=== PATIENT | female | born 1935 | race Caucasian/White ===

== ENCOUNTER 2018-03-11 01:05 | Emergency (ER) | payer MEDICARE, OTHER ==
[~2018-03-11] VITALS: Ht 165.1 cm; Wt 82.7 kg
[2018-03-11 01:06] VITALS: BP 180/73
--- NOTE | 2018-03-11 01:15 | NUR ---
Provider to bedside for pt eval complete.
[2018-03-11] MEDS ORDERED: DIPHENHYDRAMINE 25 MG CAPSULE ONE (01:26)
[2018-03-11] MEDS ORDERED: DEXAMETHASONE 4 MG TABLET ONE (01:26)
[2018-03-11] MEDS ORDERED: DIPHENHYDRAMINE 25 MG CAPSULE PO ONE (01:30)
[2018-03-11] MEDS ORDERED: DEXAMETHASONE 4 MG TABLET PO ONE (01:30)
--- NOTE | 2018-03-11 01:45 | NUR ---
Pt recieved meds per orders, see emar. pt states she was just sitting with her when her hands started to itch, pt noted edema and redness to R hand, then it started to spread to L hand. Redness, edema, noted worse to R hand then L. Pt itching hands. Pt denies having anything new in her routine other than spiriva yesterday AM for the first time. Pt states she didn't notice her hands until last evening. Pt denies SOB or difficulty breathing. Pt breathing E/U, pt does not appear to have dyspnea. Pt in bed with SO at bedside, pt a/ox4. no distress noted. call light in reach.
--- NOTE | 2018-03-11 02:16 | NUR ---
Provider to bedside for pt update complete.
--- NOTE | 2018-03-11 02:40 | NUR ---
Patient/Caregiver given discharge instructions and they have confirmed that they understand the instructions. Patient ambulatory with steady gait.
== END 2018-03-11 02:43 | disposition home or self-care (01) ==
LOC: ED 01:45
DX: T78.40XA Allergy, unspecified, initial encounter (principal)
CPT/HCPCS: 99283; Q0163